=== PATIENT | male | born 1990 ===

== ENCOUNTER 2019-02-26 18:53 | Emergency (ER) | payer SELFPAY ==
--- NOTE | 2019-02-26 19:45 | Emergency Department Report ---
Blank Doc - Documentation Documentation: 28-year-old male that presents with right tib-fib pain. This initial assessment/diagnostic orders/clinical plan/treatment(s) is/are subject to change based on patient's health status, clinical progression and re- assessment by fellow clinical providers in the ED. Further treatment and workup at subsequent clinical providers discretion. Patient/guardians urged not to elope from the ED as their condition may be serious if not clinically assessed and managed. Initial orders include: 1- Patient sent to [facility] for further evaluation and treatment 2- xrays
--- NOTE | 2019-02-26 20:47 | XRay Report ---
RIGHT TIBIA AND FIBULA 2 VIEWS. INDICATION / CLINICAL INFORMATION: pain s/p direct trauma COMPARISON: None available. FINDINGS: BONES / JOINT(S): No acute fracture or subluxation. No significant arthritis. SOFT TISSUES: No significant abnormality. ADDITIONAL FINDINGS: None. Signer Name: Hamilton Siddiqui MD Signed: 02/26/2019 8:42 PM Workstation Name: [id number]
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
[2019-02-26] MEDS ORDERED: IBUPROFEN PO ONE (22:39)
[2019-02-26] MEDS ORDERED: PERCOCET 5/325 PO ONE (22:39)
[2019-02-26 23:42] VITALS: BP 146/90
== END 2019-02-26 23:42 | disposition home or self-care (01) ==
LOC: ED 18:53
DX: S87.81XA Crushing injury of right lower leg, initial encounter (principal); S80.11XA Contusion of right lower leg, initial encounter; W31.9XXA Contact with unspecified machinery, initial encounter; Y93.89 Activity, other specified; Y92.89 Other specified places as the place of occurrence of the external cause; Y99.8 Other external cause status